=== PATIENT | female | born 1980 | race Caucasian/White ===

== ENCOUNTER 2017-11-26 01:26 | Emergency (ER) | payer OTHER ==
[2017-11-26] MEDS: HYDROcodone/APAP 5/325MG 1 TAB TABLET PO (02:50)
[2017-11-26] MEDS: silver sulfADIAZINE 1% CREAM 25GM TUBE. TP (02:51)
== END 2017-11-26 02:58 | disposition home or self-care (01) ==
LOC: ER 01:26
DX: T22.111A Burn of first degree of right forearm, initial encounter (principal); Z88.1 Allergy status to other antibiotic agents; W40.8XXA Explosion of other specified explosive materials, initial encounter; Y93.89 Activity, other specified; Y99.8 Other external cause status; Y92.89 Other specified places as the place of occurrence of the external cause
CPT/HCPCS: 16020; 99284-25

== ENCOUNTER → 2018-10-03 | Outpatient (CLI) | payer OTHER ==
[2017-11-26 01:31] VITALS: BP 124/87
[~2018-10-03] MED LIST: SILV20CR14 TP; TRAM50TA PO
--- NOTE | 2018-10-03 16:20 | KCIC ---
History: Baseline screening mammogram. Family history of breast cancer of an aunt and grandmother. Bilateral digital CC and MLO views were obtained with mammography . Computer aided detection was utilized with iCAD Second Look 7.2-H. Previous: No priors. There are scattered fibroglandular densities (Level 2 density).There are no suspicious masses, suspicious microcalcifications or areas of architectural distortion. IMPRESSION: Negative mammogram. Patient information was entered into the [employer] reminder system with a target due date for the next screening mammogram. Continue annual screening mammography at 40 years of age per ACR guidelines. BI-RADS Category 1: Negative. If your mammogram demonstrates that you have dense breast tissue, which could hide abnormalities, and if you have other risk factors for breast cancer that have been identified, you might benefit from supplemental screening tests that may be suggested by your ordering physician. Dense breast tissue, in and of itself, is a relatively common condition. This information is not provided to cause undue concern, but rather to raise your awareness and to promote discussion with your physician regarding the presence of other risk factors, in addition to dense breast tissue. A report of your mammography results will be sent to you and your physician. You should contact your physician if you have any questions or concerns regarding this report. A mammogram does not have 100% sensitivity and therefore a negative imaging study should not delay further work up of a suspicious abnormality. "Our facility is accredited by the [employer] Mammography Program." Electronically signed by: Terrance Johansen MD (10/03/2018 4:17 PM) [id number]
== END | disposition home or self-care (01) ==
LOC: KCIC MAMMO 10:33
PROVIDERS: ATTEND Nurse Practitioner Family
DX: Z12.31 Encounter for screening mammogram for malignant neoplasm of breast (principal)
CPT/HCPCS: 77067